=== PATIENT | female | born 2000 | race Two or more races ===

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

== ENCOUNTER 2019-08-18 22:43 | Emergency (ER) | payer OTHER ==
[~2019-08-18] VITALS: Ht 160 cm; Wt 54.4 kg
[2019-08-19] MEDS ORDERED: VISTARIL25 MG PO (03:58)
== END 2019-08-19 04:08 | disposition home or self-care (01) ==
LOC: ER 22:43
DX: R00.0 Tachycardia, unspecified (principal); F06.4 Anxiety disorder due to known physiological condition

== ENCOUNTER 2022-12-20 13:19 | Emergency (ER) | payer OTHER ==
[~2022-12-20] VITALS: Ht 160 cm; Wt 56.7 kg
[~2022-12-20 13:19] MED LIST: VISTARIL25 MG PO
== END 2022-12-20 15:45 | disposition home or self-care (01) ==
LOC: ER 13:19
DX: L56.8 Other specified acute skin changes due to ultraviolet radiation (principal); R21 Rash and other nonspecific skin eruption

== ENCOUNTER 2024-02-28 17:13 | Emergency (ER) | payer OTHER ==
[~2024-02-28] VITALS: Ht 160 cm; Wt 53.1 kg
[2024-02-28 19:06] LABS: HEMATOCRIT 37.1 % (36.0-45.00); HEMOGLOBIN 12.9 g/dL (12.0-15.00); MEAN CELL VOLUME 92.2 fL (80.00-100.00); MEAN CORPUSCULAR HGB CONC 34.7 g/dl (32.0-36.0); RED BLOOD COUNT 4.02 M/uL (4.00-6.00); RED CELL DISTRIBUTION WIDTH 13.2 % (11.5-14.5)
[2024-02-28 19:07] LABS: PLATELET COUNT 85 K/uL (150-450)
[2024-02-28 19:23] LABS: ALBUMIN 4.2 gm/dL (3.4-5.0); BILIRUBIN TOTAL 0.48 mg/dL (0.3-1.2); CALCIUM 9.3 mg/dL (8.5-10.1); CREATININE SERUM 0.8 mg/dL (0.55-1.02); GFR 88.12; GLOBULINA 3.6 G/DL (2.4-3.5); TOTAL PROTEIN 7.8 gm/dL (6.4-8.2)
[2024-02-28] MEDS ORDERED: 0.9 % SODIUM CHLORIDE 1,000 ML IV STA (19:38)
[2024-02-28 20:37] LABS: INR 1.15; PARTIAL THROMBOPLASTIN TIME 37.7 SECONDS (22.0-34.0); PROTHROMBIN TIME 12.4 SECONDS (9.0-11.5)
[2024-02-28] MEDS ORDERED: ACETAMINOPHEN 325 MG TABLET PO STA (20:50)
[2024-02-28] MEDS ORDERED: ACETAMINOPHEN 500 MG GEL..CAP PO ONE ×2 (21:34→21:35)
[2024-02-28 23:32] LABS: HEMATOCRIT 36.3 % (36.0-45.00); HEMOGLOBIN 12.2 g/dL (12.0-15.00); MEAN CELL VOLUME 94.9 fL (80.00-100.00); MEAN CORPUSCULAR HEMOGLOBIN 31.8 pg (27.00-32.0); MEAN CORPUSCULAR HGB CONC 33.6 g/dl (32.0-36.0); RED BLOOD COUNT 3.83 M/uL (4.00-6.00); RED CELL DISTRIBUTION WIDTH 13.1 % (11.5-14.5)
[2024-02-28 23:33] LABS: PLATELET COUNT 81 K/uL (150-450)
== END 2024-02-28 23:52 | disposition home or self-care (01) ==
LOC: ER 17:14
PROVIDERS: General Practice
DX: A90 Dengue fever [classical dengue] (principal); Z20.822 Contact with and (suspected) exposure to COVID-19

== ENCOUNTER 2024-02-29 14:52 | Inpatient (IN) | payer OTHER ==
[~2024-02-29] VITALS: Ht 160 cm; Wt 114.8 kg
[2024-02-29] MEDS ORDERED: 0.9 % SODIUM CHLORIDE 1,000 ML IV ONE (16:15)
[2024-02-29 16:41] LABS: HEMATOCRIT 37.2 % (36.0-45.00); HEMOGLOBIN 12.9 g/dL (12.0-15.00); MEAN CORPUSCULAR HGB CONC 34.8 g/dl (32.0-36.0); RED BLOOD COUNT 4.05 M/uL (4.00-6.00); RED CELL DISTRIBUTION WIDTH 13.1 % (11.5-14.5)
[2024-02-29 16:48] LABS: PLATELET COUNT 64 K/uL (150-450)
[2024-02-29] MEDS ORDERED: ACETAMINOPHEN 500 MG GEL..CAP PO ONE ×2 (17:00→17:09)
[2024-02-29 17:13] LABS: INR 1.09; PROTHROMBIN TIME 11.8 SECONDS (9.0-11.5)
[2024-02-29 17:25] LABS: PARTIAL THROMBOPLASTIN TIME 38.2 SECONDS (22.0-34.0)
[2024-02-29 17:28] LABS: ALBUMIN 4.3 gm/dL (3.4-5.0); ALKALINE PHOSPHATASE 55 U/L (50-136); ALT/SGPT 143 U/L (12-78); ANION GAP 12 (10.0-20.0); AST/SGOT 169 U/L (15-37); BILIRUBIN TOTAL 0.51 mg/dL (0.3-1.2); BLOOD UREA NITROGEN 6 mg/dL (7-18); BUN CREA RATIO 8 (7.0-25.0); CALCIUM 9.2 mg/dL (8.5-10.1); CARBON DIOXIDE 25 mEq/L (21-32); CHLORIDE 105 mmol/L (98-107); CREATININE SERUM 0.71 mg/dL (0.55-1.02); GFR 101.13; GLOBULINA 3.7 G/DL (2.4-3.5); GLUCOSE FASTING 107 mg/dL (65-100); OSMOLALITY SERUM 274 MOSM/KG (275-295); POTASSIUM 3.53 mEq/L (3.5-5.1); SODIUM 138 mmol/L (136-145)
[2024-02-29 17:31] LABS: PH,URINE 7.5 (5.0-8.0); URINE APPEARANCE Cloudy; URINE BILIRRUBIN Negative (NEGATIVE); URINE BLOOD Large; URINE COLOR Yellow; URINE GLUCOSE Negative (NEGATIVE); URINE KETONE Negative (NEGATIVE); URINE LEUKOCYTE Negative; URINE NITRATE Negative; URINE PROTEIN Negative (NEGATIVE)
[2024-02-29 17:35] LABS: URINE BACTERIA 942.4 uL (0.0-1933); URINE EPITHELIAL CELLS 16.2 uL (0.0-38.8); URINE RBC 14.1 uL (0.0-20.8); URINE WBC 1.8 uL (0.0-23.2)
[2024-02-29 17:38] LABS: HCG QUANTITATIVE < 1 mUI/mL (1-3)
[2024-02-29] MEDS ORDERED: ONDANSETRON HCL 4 MG in 0.9 % SODIUM CHLORIDE 50 ML IV PRN (19:45)
[2024-02-29] MEDS ORDERED: ACETAMINOPHEN 325 MG TABLET PO PRN (19:45)
[2024-02-29] MEDS ORDERED: 0.9 % SODIUM CHLORIDE 1,000 ML IV SCH (19:45)
[2024-02-29 21:05] VITALS: BP 100/79
[2024-02-29 21:29] LABS: ABG PH 7.351 (7.35-7.45); ABG PO2 89.6 mmHg (80-100); ABG pCO2 35.6 mmHg (35-45); BASE EXCESS 2.3 mmol/l; SaO2 95.6 %
[2024-02-29 21:30] LABS: BICARBONATE 22.3 mmol/l (23-25); Tco2 24.5 mmol/l; allen test SATISFACTORY; o2 21 %; puncture site RADIAL LEFT
[2024-02-29 21:36] LABS: ALBUMIN 3.9 gm/dL (3.4-5.0); BILIRUBIN TOTAL 0.44 mg/dL (0.3-1.2); BILIRUBIN,CONJUGATED 0.12 mg/dL (0.0-0.2); BILIRUBIN,UNCONJUGATED 0.32 mg/dL (0.0-0.6); CALCIUM 8.6 mg/dL (8.5-10.1); CREATININE SERUM 0.66 mg/dL (0.55-1.02); GFR 110.03; GLOBULINA 3.2 G/DL (2.4-3.5); POTASSIUM 3.57 mEq/L (3.5-5.1); TOTAL PROTEIN 7.1 gm/dL (6.4-8.2)
[2024-02-29 21:41] LABS: C-REACTIVE PROTEIN 1.41 MG/DL (0.00-0.29)
[2024-02-29 22:13] VITALS: BP 126/90; O2SAT 100
[2024-03-01 00:46] VITALS: BP 122/81
[2024-03-01 06:07] LABS: HEMATOCRIT 32.7 % (36.0-45.00); HEMOGLOBIN 11.3 g/dL (12.0-15.00); MEAN CELL VOLUME 93.2 fL (80.00-100.00); MEAN CORPUSCULAR HEMOGLOBIN 32.1 pg (27.00-32.0); MEAN CORPUSCULAR HGB CONC 34.5 g/dl (32.0-36.0); RED BLOOD COUNT 3.51 M/uL (4.00-6.00); RED CELL DISTRIBUTION WIDTH 12.5 % (11.5-14.5)
[2024-03-01 06:19] LABS: PLATELET COUNT 52 K/uL (150-450)
[2024-03-01] MEDS ORDERED: ACETAMINOPHEN 500 MG GEL..CAP PO PRN (08:00)
[2024-03-01] MEDS ORDERED: CYANOCOBALAMIN (VITAMIN B-12) 1,000 MCG TABLET PO SCH (09:00)
[2024-03-01 09:28] VITALS: BP 127/81
[2024-03-01 16:56] VITALS: BP 114/76
[2024-03-02 06:13] LABS: HEMATOCRIT 31.9 % (36.0-45.00); HEMOGLOBIN 10.9 g/dL (12.0-15.00); MEAN CELL VOLUME 94.1 fL (80.00-100.00); MEAN CORPUSCULAR HEMOGLOBIN 32.3 pg (27.00-32.0); MEAN CORPUSCULAR HGB CONC 34.3 g/dl (32.0-36.0); RED BLOOD COUNT 3.39 M/uL (4.00-6.00); RED CELL DISTRIBUTION WIDTH 12.8 % (11.5-14.5)
[2024-03-02 06:25] LABS: PLATELET COUNT 43 K/uL (150-450)
[2024-03-02 08:18] VITALS: BP 109/71; O2SAT 98
[2024-03-02 18:26] LABS: HEMOGLOBIN 11.1 g/dL (12.0-15.00); MEAN CELL VOLUME 93.7 fL (80.00-100.00); MEAN CORPUSCULAR HEMOGLOBIN 31.5 pg (27.00-32.0); MEAN CORPUSCULAR HGB CONC 33.6 g/dl (32.0-36.0); RED BLOOD COUNT 3.52 M/uL (4.00-6.00); RED CELL DISTRIBUTION WIDTH 12.8 % (11.5-14.5)
[2024-03-02 18:48] LABS: ALBUMIN 3.5 gm/dL (3.4-5.0); BILIRUBIN TOTAL 0.45 mg/dL (0.3-1.2); CALCIUM 8.5 mg/dL (8.5-10.1); CREATININE SERUM 0.65 mg/dL (0.55-1.02); GFR 111.98; MAGNESIUM 1.6 mg/dL (1.8-2.4); POTASSIUM 3.73 mEq/L (3.5-5.1); TOTAL PROTEIN 6.5 gm/dL (6.4-8.2)
[2024-03-02 19:06] LABS: PLATELET COUNT 49 K/uL (150-450)
[2024-03-02 19:07] LABS: MANUAL PLATELET COUNT 50
[2024-03-02 20:57] VITALS: BP 108/60
[2024-03-03 02:12] VITALS: BP 138/84
[2024-03-03 07:20] LABS: HEMATOCRIT 32.8 % (36.0-45.00); HEMOGLOBIN 11.5 g/dL (12.0-15.00); MEAN CELL VOLUME 90.9 fL (80.00-100.00); MEAN CORPUSCULAR HEMOGLOBIN 31.9 pg (27.00-32.0); MEAN CORPUSCULAR HGB CONC 35.1 g/dl (32.0-36.0); RED BLOOD COUNT 3.61 M/uL (4.00-6.00)
[2024-03-03 08:18] VITALS: BP 116/70; O2SAT 98
[2024-03-03 08:35] LABS: MANUAL PLATELET COUNT 168
[2024-03-03 08:36] LABS: PLATELET COUNT 68 K/uL (150-450)
[2024-03-03 08:47] LABS: ALBUMIN 3.7 gm/dL (3.4-5.0); BILIRUBIN TOTAL 0.6 mg/dL (0.3-1.2); CALCIUM 8.8 mg/dL (8.5-10.1); CREATININE SERUM 0.55 mg/dL (0.55-1.02); GFR 135.79; GLOBULINA 3.5 G/DL (2.4-3.5); MAGNESIUM 1.8 mg/dL (1.8-2.4); PHOSPHOROUS 2.9 mg/dL (2.5-4.9); POTASSIUM 3.38 mEq/L (3.5-5.1); TOTAL PROTEIN 7.2 gm/dL (6.4-8.2)
[2024-03-03] MEDS ORDERED: CEFTRIAXONE SODIUM 2,000 MG VIAL IV SCH (09:00)
[2024-03-03] MEDS ORDERED: POTASSIUM CHLORIDE IN WATER 100 ML IV NR (14:00)
[2024-03-03 16:30] VITALS: BP 117/72; O2SAT 100
[2024-03-03 23:25] VITALS: BP 117/72; O2SAT 99
[2024-03-04 07:45] LABS: HEMATOCRIT 32.3 % (36.0-45.00); HEMOGLOBIN 11.3 g/dL (12.0-15.00); MEAN CELL VOLUME 91.4 fL (80.00-100.00); MEAN CORPUSCULAR HEMOGLOBIN 31.9 pg (27.00-32.0); MEAN CORPUSCULAR HGB CONC 34.9 g/dl (32.0-36.0); PLATELET COUNT 133 K/uL (150-450); RED BLOOD COUNT 3.53 M/uL (4.00-6.00)
[2024-03-04 08:20] LABS: ALBUMIN 3.7 gm/dL (3.4-5.0); BILIRUBIN TOTAL 0.58 mg/dL (0.3-1.2); CREATININE SERUM 0.67 mg/dL (0.55-1.02); GFR 108.13; GLOBULINA 3.4 G/DL (2.4-3.5); POTASSIUM 3.86 mEq/L (3.5-5.1); TOTAL PROTEIN 7.1 gm/dL (6.4-8.2)
[2024-03-04 08:58] VITALS: BP 128/76; O2SAT 98
[2024-03-04 16:00] VITALS: BP 119/71; O2SAT 98
[2024-03-05 01:43] VITALS: BP 119/80; O2SAT 99
[2024-03-05 05:06] LABS: hav igm Negative (Negative); hcv Non Reactive (Non Reactive); hep b c Negative (Negative); hep b s ag Negative (Negative)
[2024-03-05 06:44] LABS: ALBUMIN 3.8 gm/dL (3.4-5.0); BILIRUBIN TOTAL 0.54 mg/dL (0.3-1.2); CREATININE SERUM 0.63 mg/dL (0.55-1.02); GFR 116.1; GLOBULINA 3.6 G/DL (2.4-3.5); POTASSIUM 4.14 mEq/L (3.5-5.1); TOTAL PROTEIN 7.4 gm/dL (6.4-8.2)
[2024-03-05 09:14] VITALS: BP 120/78; O2SAT 98
== END 2024-03-05 17:04 | disposition home or self-care (01) | DRG 866 ==
LOC: ER 14:53 → MEDI 20:06
PROVIDERS: General Practice; Internal Medicine Infectious Disease; ADMIT Internal Medicine; ATTEND Internal Medicine
PROC: BW40ZZZ Ultrasonography of Abdomen (ICD-10-PCS; principal; 2024-03-03)
DX: A90 Dengue fever [classical dengue] (principal); D69.6 Thrombocytopenia, unspecified; N93.8 Other specified abnormal uterine and vaginal bleeding

== ENCOUNTER 2024-11-16 13:41 | Emergency (ER) | payer OTHER ==
[~2024-11-16] VITALS: Ht 160 cm; Wt 54.4 kg
[2024-11-16] MEDS ORDERED: ZOLOFT100 MG PO (14:49)
[2024-11-16 16:14] LABS: BASO % 0.4 % (0.1-1.2); EOS # 0.32 (0.04-0.54); EOS % 5.9 % (0.7-7.0); HEMATOCRIT 34.3 % (34.1-44.9); HEMOGLOBIN 11.6 g/dL (11.2-15.7); LYMPH # 1.87 (1.18-3.74); LYMPH % 34.6 % (19.3-53.1); MONO # 0.44 (0.24-0.82); MONO % 8.1 % (4.7-12.5); NEUT # 2.75 (1.56-6.13); NEUT % 50.8 % (34.0-71.1); PLATELET COUNT 205 K/uL (163-369); RED BLOOD COUNT 3.74 M/uL (3.93-5.22); RED CELL DISTRIBUTION WIDTH 12.1 % (11.6-14.4)
[2024-11-16 16:39] LABS: ALBUMIN 3.9 gm/dL (3.4-5.0); BILIRUBIN TOTAL 0.36 mg/dL (0.3-1.2); CALCIUM 9.2 mg/dL (8.5-10.1); CREATININE SERUM 0.75 mg/dL (0.55-1.02); GFR 94.15; GLOBULINA 3.5 G/DL (2.4-3.5); POTASSIUM 4.03 mEq/L (3.5-5.1); TOTAL PROTEIN 7.4 gm/dL (6.4-8.2)
[2024-11-16 17:31] LABS: PH,URINE 6.5 (5.0-8.0); URINE APPEARANCE Clear; URINE BILIRRUBIN Negative (NEGATIVE); URINE BLOOD Negative; URINE COLOR Yellow; URINE GLUCOSE Negative (NEGATIVE); URINE KETONE Negative (NEGATIVE); URINE LEUKOCYTE Negative; URINE NITRATE Negative; URINE PROTEIN Negative (NEGATIVE); URINE UROBILINOGEN 0.2 E.U./dl
[2024-11-16 17:36] LABS: URINE BACTERIA 211.6 uL (0.0-1933); URINE EPITHELIAL CELLS 19.1 uL (0.0-38.8); URINE WBC 16.6 uL (0.0-23.2)
== END 2024-11-16 19:39 | disposition home or self-care (01) ==
LOC: ER 13:41
PROVIDERS: Emergency Medicine
DX: R10.2 Pelvic and perineal pain (principal); R35.0 Frequency of micturition